=== PATIENT | female | born 1990 | race African-American/Black ===

== ENCOUNTER 2019-10-31 15:37 | Emergency (ER) | payer MEDICAID ==
[~2019-10-31] VITALS: Ht 167.6 cm; Wt 77.0 kg
[~2019-10-31 15:37] MED LIST: PREN-88 PO
[2019-10-31] MEDS ORDERED: IBUPROFEN 600MG TABLET PO ONE (16:45)
[2019-10-31] MEDS ORDERED: ONDANSETRON 4MG ODT PO ONE (17:45)
[2019-10-31 17:56] VITALS: BP 132/78
== END 2019-10-31 17:58 | disposition home or self-care (01) ==
LOC: ER 15:37
DX: S16.1XXA Strain of muscle, fascia and tendon at neck level, initial encounter (principal); V43.52XA Car driver injured in collision with other type car in traffic accident, initial encounter; Y93.89 Activity, other specified; Y92.488 Other paved roadways as the place of occurrence of the external cause
CPT/HCPCS: 72040; 99283; Q0162